=== PATIENT | female | born 1940 | race Caucasian/White ===

== ENCOUNTER 2016-08-14 10:32 | Day surgery (SDC) | payer OTHER ==
--- NOTE | ~2016-08-14 | EGD ---
EGD REPORT [facility] [address] [address] NAME: TANIA SIMON : [birth year] STATUS : REG [facility]#: [id number] AGE: 75 ADM/REG DATE : 08/14/16 MR#: [id number] REPORT SERV DATE: 08/14/16 DICTATED BY: LUKAS PETIT DATE: 08/14/16 REPORT STATUS : Draft TRANSCRIBED BY: [employer] DATE: 08/14/16 [facility] Patient Name: Tania Simon Date of : 1940 Attending MD: LUKAS PETIT MD Procedure Date No Time: 08/14/2016 Procedure: Upper GI endoscopy Indications: Epigastric abdominal pain, Dysphagia, Heartburn, Suspected esophageal reflux, Nausea Referring MD: Antony RIVERA Medicines: as per anesthesia Complications: No immediate complications. Procedure: Pre-Anesthesia Assessment: - ASA Grade Assessment: III - A patient with severe systemic disease. After obtaining informed consent, the endoscope was passed under direct vision. Throughout the procedure, the patient's blood pressure, pulse, and oxygen saturations were monitored continuously. The GIF H190 [id number] was introduced through the mouth, and advanced to the second part of duodenum. The upper GI endoscopy was accomplished without difficulty. The patient tolerated the procedure. Findings: The examined esophagus was normal. The scope was withdrawn. Dilation was performed with a Mccullough dilator with no resistance at 44 Fr. Localized mildly erythematous mucosa was found in the gastric antrum. A small hiatus hernia was present. Localized mildly erythematous mucosa was found in the second part of the duodenum. Impression: - Normal esophagus. Dilated. - Erythematous mucosa in the antrum. - Hiatus hernia. - Erythematous duodenopathy. Recommendation: - Follow an antireflux regimen. - Continue present medications. Procedure Code(s): --- Professional --- 61135, Esophagogastroduodenoscopy, flexible, transoral; diagnostic, including collection of specimen(s) by brushing or washing, when performed (separate procedure) 33845, Dilation of esophagus, by unguided sound or EGD REPORT [place] [address] [place]. [address] NAME: TANIA SIMON : [birth year] STATUS : REG [facility]#: [id number] AGE: 75 ADM/REG DATE : 08/14/16 MR#: [id number] REPORT SERV DATE: 08/14/16 DICTATED BY: LUKAS PETIT. DATE: 08/14/16 REPORT STATUS : Draft TRANSCRIBED BY: [employer] DATE: 08/14/16 bougie, single or multiple passes Diagnosis Code(s): --- Professional --- K31.9, Disease of stomach and duodenum, unspecified K44.9, Diaphragmatic hernia without obstruction or gangrene K31.89, Other diseases of stomach and duodenum R10.13, Epigastric pain R13.10, Dysphagia, unspecified R12, Heartburn R11.0, Nausea CPT copyright 2013 [employer]. All rights reserved. The codes documented in this report are preliminary and upon retirement benefits specialist review may be revised to meet current compliance requirements. LUKAS PETIT MD 08/14/2016 1:47 PM This report has been signed electronically. Number of Addenda: 0 Note Initiated On: 08/14/2016 1:26 PM Scope Withdrawal Time 0 hours 0 minutes 0 seconds [address] [place] [address]
--- NOTE | ~2016-08-14 | EGD ---
EGD REPORT [facility] [address] [place] [address] NAME: LACY SIMON : [birth year] STATUS : REG [facility]#: [id number] AGE: 75 ADM/REG DATE : 08/14/16 MR#: [id number] REPORT SERV DATE: 08/14/16 DICTATED BY: LUKAS PETIT DATE: 08/14/16 REPORT STATUS : Draft TRANSCRIBED BY: [employer] DATE: 08/14/16 [facility] Patient Name: Lacy Simon Date of : 1940 Attending MD: LUKAS PETIT MD Procedure Date No Time: 08/14/2016 Procedure: Colonoscopy Indications: Screening for colorectal malignant neoplasm Referring MD: Antony RIVERA Medicines: as per anesthesia Complications: No immediate complications. Procedure: Pre-Anesthesia Assessment: - ASA Grade Assessment: III - A patient with severe systemic disease. After I obtained informed consent, the scope was passed under direct vision. Throughout the procedure, the patient's blood pressure, pulse, and oxygen saturations were monitored continuously. The PCF [id number] was introduced through the anus and advanced to the cecum, identified by appendiceal orifice and ileocecal valve. The colonoscopy was performed without difficulty. The patient tolerated the procedure. The quality of the bowel preparation was adequate to identify polyps. Findings: The perianal and digital rectal examinations were normal. Internal hemorrhoids were found during endoscopy and were mild. Impression: - Internal hemorrhoids. Recommendation: - Continue present medications. Procedure Code(s): --- Professional --- 27785, Colonoscopy, flexible, proximal to splenic flexure; diagnostic, with or without collection of specimen(s) by brushing or washing, with or without colon decompression (separate procedure) Diagnosis Code(s): --- Professional --- K64.8, Other hemorrhoids Z12.11, Encounter for screening for malignant neoplasm of colon CPT copyright 2013 [employer]. All rights reserved. EGD REPORT [facility] [address] [facility] [place]. [address] NAME: LACY SIMON : [birth year] STATUS : REG [facility] PAT#: [id number] AGE: 75 ADM/REG DATE : 08/14/16 MR#: [id number] REPORT SERV DATE: 08/14/16 DICTATED BY: LUKAS PETIT. DATE: 08/14/16 REPORT STATUS : Draft TRANSCRIBED BY: [employer] DATE: 08/14/16 The codes documented in this report are preliminary and upon building contractor review may be revised to meet current compliance requirements. LUKAS PETIT MD 08/14/2016 2:03 PM This report has been signed electronically. Number of Addenda: 0 Note Initiated On: 08/14/2016 1:20 PM Scope Withdrawal Time 0 hours 6 minutes 31 seconds [address] [facility] [place] [address]
[~2016-08-14 10:32] MED LIST: AMATIZA PO; ASA5GR PO; ASABAYER PO; ATEN25 PO; ATEN50 PO; B12 INJ; B121000P IM; BACTROCR TOP; CALTRAT600 PO; EYE DROPS OPH; FOLIC ACID PO; HALF81 PO; HYDROCORT12 TOP; PRAVAC PO; SYN.025B PO; SYN.05 PO; SYN1 PO; UNITHROID50 MCG PO; VITAMIN D31000 UNIT PO; VITC500 PO
== END 2016-08-14 23:59 | disposition home or self-care (01) ==
LOC: DMU 10:32
PROVIDERS: Internal Medicine Gastroenterology
PROC: 0DJD8ZZ Inspection of Lower Intestinal Tract, Via Natural or Artificial Opening Endoscopic (ICD-10-PCS; principal; 2016-08-14 12:00)
PROC: 0D757ZZ Dilation of Esophagus, Via Natural or Artificial Opening (ICD-10-PCS; 2016-08-14 12:00)
DX: Z12.11 Encounter for screening for malignant neoplasm of colon (principal); K64.8 Other hemorrhoids; K31.9 Disease of stomach and duodenum, unspecified; K44.9 Diaphragmatic hernia without obstruction or gangrene; K31.89 Other diseases of stomach and duodenum; R10.13 Epigastric pain; R13.10 Dysphagia, unspecified; R12 Heartburn; R11.0 Nausea; K21.9 Gastro-esophageal reflux disease without esophagitis; E03.9 Hypothyroidism, unspecified; F39 Unspecified mood [affective] disorder; Z86.73 Personal history of transient ischemic attack (TIA), and cerebral infarction without residual deficits; Z88.0 Allergy status to penicillin; Z88.1 Allergy status to other antibiotic agents; Z79.899 Other long term (current) drug therapy; Z79.82 Long term (current) use of aspirin